=== PATIENT | female | born 1960 | race Caucasian/White ===

== ENCOUNTER 2018-02-08 15:06 | Inpatient (IN) | payer MEDICARE ==
[~2018-02-08] VITALS: Ht 152.4 cm; Wt 78.5 kg
[2018-02-08] MEDS ORDERED: LORA2TAB PO (16:22)
[2018-02-08] MEDS ORDERED: ALPR1TAB7 PO (16:22)
[2018-02-08] MEDS ORDERED: RISP1TAB27 PO (16:22)
[2018-02-08] MEDS ORDERED: MEMA10TA PO (16:22)
[2018-02-08] MEDS ORDERED: LEVO25TA9 PO (16:22)
[2018-02-08] MEDS ORDERED: LEVO50TA8 PO (16:22)
[2018-02-08] MEDS ORDERED: ZOLP10TA6 PO (16:22)
[2018-02-08] MEDS ORDERED: OLAN10TA3 PO (16:22)
[2018-02-08] MEDS ORDERED: PANT40TA4 PO (16:22)
[2018-02-08] MEDS ORDERED: ARIP10TA9 PO (16:22)
[2018-02-08 16:36] LABS: BASOPHILS % (AUTO) 0.3 % (0.0-2.0); HEMATOCRIT 42.4 % (31.2-41.9); HEMOGLOBIN 14.2 g/dL (10.9-14.3); LYMPHOCYTES # (AUTO) 1.5 K/uL (20.0-40.0); LYMPHOCYTES % (AUTO) 27.4 % (20.5-51.5); MEAN CORPUSCULAR HEMOGLOBIN 31.4 uug (24.7-32.8); MEAN CORPUSCULAR HGB CONC 34 g/dL (32.3-35.6); MEAN CORPUSCULAR VOLUME 93.7 fL (75.5-95.3); MONOCYTES # (AUTO) 0.4 K/uL (2.0-10.0); MONOCYTES % (AUTO) 8.2 % (0.0-11.0); NEUTROPHILS # (AUTO) 3.4 K/uL (1.8-8.9); NEUTROPHILS % (AUTO) 64.1 % (38.5-71.5); PLATELET COUNT (AUTO) 221 K/uL (179-408); RED BLOOD CELL COUNT(AUTO) 4.53 MIL/uL (3.63-4.92); WHITE BLOOD COUNT (AUTO) 5.4 K/uL (3.8-11.8)
[2018-02-08 16:45] LABS: *BILIRUBIN,URIN NEGATIVE (NEGATIVE); *BLOOD, URINE Trace-intact (NEGATIVE); *CLARITY,URINE SLIGHTLY CLOUDY (CLEAR); *COLOR,URINE YELLOW (YELLOW); *KETONES,URINE NEGATIVE (NEGATIVE); *PROTEIN,URINE NEGATIVE (NEGATIVE); *UROBILINOGEN,URINE 0.2 E.U./dl (NORMAL); LEUKOCYTE ESTERASE ,URINE 1+ (NEGATIVE); NITRITE, URINE NEGATIVE (NEGATIVE); PH,URINE 6.5 (5.0-8.0); UGLUCOSE NEGATIVE (NEGATIVE)
[2018-02-08 16:46] LABS: CARBON DIOXIDE 31 mmol/L (21-32); CHLORIDE 106 mmol/L (98-107); CREATININE 0.9 mg/dL (0.6-1.3); GLUCOSE 93 mg/dL (74-106); POTASSIUM 4.5 mmol/L (3.5-5.1); UREA NITROGEN, BLOOD 24 mg/dL (7-18)
[2018-02-08 16:52] LABS: ETHANOL < 3 MG/DL (0-0)
[2018-02-08 16:53] LABS: *AMPHETAMINE, URINE NEGATIVE (NEGATIVE); *BARBITURATE, URINE NEGATIVE (NEGATIVE); *CANNABINOID, URINE NEGATIVE (NEGATIVE); *COCCAINE, URINE NEGATIVE (NEGATIVE); *OPIATE, URINE NEGATIVE (NEGATIVE); *PHENCYCLIDINE SCREEN,URINE NEGATIVE (NEGATIVE)
[2018-02-08 16:53] LABS: ALANINE AMINOTRANSFERASE 30 U/L (14-59); ALKALINE PHOSPHATASE 132 U/L (50-136); ASPARTATE AMINOTRANSFERASE 16 U/L (15-37); BILIRUBIN,DIRECT 0.1 mg/dL (0.0-0.2); BILIRUBIN,TOTAL 0.3 mg/dL (0.2-1.0); TOTAL PROTEIN, SERUM 7.1 g/dL (6.4-8.2)
[2018-02-08 16:56] LABS: ACETAMINOPHEN < 2.0 ug/mL (10-30)
[2018-02-08 16:59] LABS: BACTERIA,URINE FEW /HPF (NONE SEEN); RBC,URINE 0-3 /HPF (0-3); SQUAMOUS EPITHELIAL CELL,UR FEW /HPF (NONE SEEN); WBC,URINE 20-50 /HPF (0-3)
[2018-02-08] MEDS ORDERED: NITROFURANTOIN/NITROFURAN MAC 100 MG CAPSULE ONE (17:13)
[2018-02-08] MEDS ORDERED: NITROFURANTOIN/NITROFURAN MAC 100 MG CAPSULE PO ONE (17:15)
[2018-02-08 19:30] VITALS: BP 128/79
[2018-02-08] MEDS ORDERED: MAGNESIUM HYDROXIDE 30 ML LIQUID UDC PO PRN (19:45)
[2018-02-08 20:42] VITALS: BP 128/79
[2018-02-08] MEDS: LORAZEPAM 0.5 MG TABLET PO PRN (20:57)
[2018-02-08] MEDS: TEMAZEPAM 7.5 MG CAPSULE PO PRN (21:29)
[2018-02-08] MEDS: ACETAMINOPHEN 325 MG TABLET PO PRN (23:19)
[2018-02-09] MEDS: PANTOPRAZOLE SODIUM 40 MG TABLET.DR PO SCH (06:33)
[2018-02-09 07:30] VITALS: BP 119/69
[2018-02-09 07:38] LABS: HEMATOCRIT 44.7 % (31.2-41.9); HEMOGLOBIN 14.8 g/dL (10.9-14.3); LYMPHOCYTES # (AUTO) 1.4 K/uL (20.0-40.0); LYMPHOCYTES % (AUTO) 26.2 % (20.5-51.5); MEAN CORPUSCULAR HEMOGLOBIN 31.2 uug (24.7-32.8); MEAN CORPUSCULAR HGB CONC 33 g/dL (32.3-35.6); MEAN CORPUSCULAR VOLUME 94.2 fL (75.5-95.3); MONOCYTES # (AUTO) 0.4 K/uL (2.0-10.0); MONOCYTES % (AUTO) 7.9 % (0.0-11.0); NEUTROPHILS # (AUTO) 3.5 K/uL (1.8-8.9); NEUTROPHILS % (AUTO) 65.9 % (38.5-71.5); PLATELET COUNT (AUTO) 214 K/uL (179-408); RED BLOOD CELL COUNT(AUTO) 4.75 MIL/uL (3.63-4.92); WHITE BLOOD COUNT (AUTO) 5.3 K/uL (3.8-11.8)
[2018-02-09 08:11] LABS: BILIRUBIN,TOTAL 0.3 mg/dL (0.2-1.0); CREATININE 0.8 mg/dL (0.6-1.3); MAGNESIUM 2.1 mg/dL (1.8-2.4); PHOSPHOROUS 4.3 mg/dL (2.5-4.9); POTASSIUM 4.4 mmol/L (3.5-5.1); TOTAL PROTEIN, SERUM 7.6 g/dL (6.4-8.2)
[2018-02-09 08:28] LABS: THYROID STIMULATING HORMONE 1.349 mIU/mL (0.358-3.740)
[2018-02-09] MEDS ORDERED: LEVOTHYROXINE SODIUM 50 MCG TABLET PO SCH (09:00)
[2018-02-09] MEDS: ACETAMINOPHEN 325 MG TABLET PO PRN (11:05)
[2018-02-09] MEDS: LEVOTHYROXINE SODIUM 25 MCG TABLET PO SCH (11:58)
[2018-02-09] MEDS: risperiDONE 0.5 MG TABLET PO SCH ×2 (14:31→17:17)
[2018-02-09] MEDS: DIVALPROEX 250 MG TABLET.DR PO SCH ×2 (14:32→17:17)
[2018-02-09] MEDS: BENZTROPINE MESYLATE 0.5 MG TABLET PO SCH ×2 (14:32→17:17)
[2018-02-09 16:19] VITALS: BP 130/68
[2018-02-09] MEDS: CEPHALEXIN MONOHYDRATE 500 MG CAPSULE PO SCH (20:02)
[2018-02-09] MEDS: LORAZEPAM 0.5 MG TABLET PO PRN (20:56)
[2018-02-09] MEDS: TEMAZEPAM 7.5 MG CAPSULE PO PRN (21:37)
[2018-02-10] MEDS: LEVOTHYROXINE SODIUM 25 MCG TABLET PO SCH (06:33)
[2018-02-10] MEDS: PANTOPRAZOLE SODIUM 40 MG TABLET.DR PO SCH (06:33)
[2018-02-10 07:30] VITALS: BP 124/64
[2018-02-10] MEDS: risperiDONE 0.5 MG TABLET PO SCH ×3 (08:41→17:05)
[2018-02-10] MEDS: CEPHALEXIN MONOHYDRATE 500 MG CAPSULE PO SCH ×2 (08:41→20:25)
[2018-02-10] MEDS: BENZTROPINE MESYLATE 0.5 MG TABLET PO SCH ×3 (08:41→17:05)
[2018-02-10] MEDS: DIVALPROEX 250 MG TABLET.DR PO SCH ×3 (08:41→17:05)
[2018-02-10] MEDS: ACETAMINOPHEN 325 MG TABLET PO PRN (15:22)
[2018-02-10 15:34] VITALS: BP 117/66
[2018-02-10 19:30] VITALS: BP 134/69
[2018-02-10] MEDS: TEMAZEPAM 7.5 MG CAPSULE PO PRN (22:26)
[2018-02-11] MEDS: LORAZEPAM 0.5 MG TABLET PO PRN (06:28)
[2018-02-11] MEDS: LEVOTHYROXINE SODIUM 25 MCG TABLET PO SCH (06:28)
[2018-02-11 07:30] VITALS: BP 132/75
[2018-02-11] MEDS: PANTOPRAZOLE SODIUM 40 MG TABLET.DR PO SCH (07:38)
[2018-02-11] MEDS: ACETAMINOPHEN 325 MG TABLET PO PRN (07:51)
[2018-02-11] MEDS: risperiDONE 0.5 MG TABLET PO SCH ×3 (08:50→16:53)
[2018-02-11] MEDS: DIVALPROEX 250 MG TABLET.DR PO SCH ×3 (08:51→16:53)
[2018-02-11] MEDS: BENZTROPINE MESYLATE 0.5 MG TABLET PO SCH ×4 (08:51→20:10)
[2018-02-11] MEDS: CEPHALEXIN MONOHYDRATE 500 MG CAPSULE PO SCH ×2 (08:51→20:10)
[2018-02-11 15:08] VITALS: BP 114/69
[2018-02-11 20:00] VITALS: BP 109/46
[2018-02-11] MEDS ORDERED: risperiDONE 0.5 MG TABLET PO SCH (21:00)
[2018-02-11] MEDS: TEMAZEPAM 7.5 MG CAPSULE PO PRN (22:14)
[2018-02-12] MEDS: PANTOPRAZOLE SODIUM 40 MG TABLET.DR PO SCH (06:39)
[2018-02-12] MEDS: LEVOTHYROXINE SODIUM 25 MCG TABLET PO SCH (06:39)
[2018-02-12 06:56] LABS: BASOPHILS % (AUTO) 0.1 % (0.0-2.0); HEMATOCRIT 44.1 % (31.2-41.9); HEMOGLOBIN 14.9 g/dL (10.9-14.3); LYMPHOCYTES # (AUTO) 1.4 K/uL (20.0-40.0); LYMPHOCYTES % (AUTO) 29.3 % (20.5-51.5); MEAN CORPUSCULAR HEMOGLOBIN 31.6 uug (24.7-32.8); MEAN CORPUSCULAR HGB CONC 34 g/dL (32.3-35.6); MEAN CORPUSCULAR VOLUME 93.6 fL (75.5-95.3); MONOCYTES # (AUTO) 0.4 K/uL (2.0-10.0); MONOCYTES % (AUTO) 8.7 % (0.0-11.0); NEUTROPHILS % (AUTO) 61.9 % (38.5-71.5); PLATELET COUNT (AUTO) 204 K/uL (179-408); RED BLOOD CELL COUNT(AUTO) 4.71 MIL/uL (3.63-4.92); WHITE BLOOD COUNT (AUTO) 4.8 K/uL (3.8-11.8)
[2018-02-12 07:09] LABS: BILIRUBIN,TOTAL 0.6 mg/dL (0.2-1.0); CREATININE 0.8 mg/dL (0.6-1.3); MAGNESIUM 2.1 mg/dL (1.8-2.4); TOTAL PROTEIN, SERUM 7.2 g/dL (6.4-8.2)
[2018-02-12 08:00] VITALS: BP 112/70
[2018-02-12] MEDS: BENZTROPINE MESYLATE 0.5 MG TABLET PO SCH ×4 (08:29→20:13)
[2018-02-12] MEDS: CEPHALEXIN MONOHYDRATE 500 MG CAPSULE PO SCH ×2 (08:29→20:13)
[2018-02-12] MEDS: risperiDONE 0.5 MG TABLET PO SCH ×3 (08:29→17:40)
[2018-02-12] MEDS: DIVALPROEX 250 MG TABLET.DR PO SCH ×4 (08:29→20:13)
[2018-02-12 16:15] VITALS: BP 108/59
[2018-02-12] MEDS: risperiDONE 1 MG TABLET PO SCH (20:13)
[2018-02-12 20:22] VITALS: BP 127/75
[2018-02-12] MEDS ORDERED: risperiDONE 0.5 MG TABLET PO SCH (21:00)
[2018-02-12] MEDS: TEMAZEPAM 7.5 MG CAPSULE PO PRN (22:29)
[2018-02-13] MEDS: LORAZEPAM 0.5 MG TABLET PO PRN (02:21)
[2018-02-13] MEDS: LEVOTHYROXINE SODIUM 25 MCG TABLET PO SCH (06:23)
[2018-02-13] MEDS: PANTOPRAZOLE SODIUM 40 MG TABLET.DR PO SCH (06:34)
[2018-02-13 07:30] VITALS: BP 117/62
[2018-02-13] MEDS: DIVALPROEX 250 MG TABLET.DR PO SCH ×4 (08:36→20:51)
[2018-02-13] MEDS: BENZTROPINE MESYLATE 0.5 MG TABLET PO SCH ×4 (08:36→20:52)
[2018-02-13] MEDS: CEPHALEXIN MONOHYDRATE 500 MG CAPSULE PO SCH ×2 (08:37→20:51)
[2018-02-13] MEDS: risperiDONE 0.5 MG TABLET PO SCH ×3 (08:37→17:26)
[2018-02-13 15:06] VITALS: BP 117/59
[2018-02-13 20:12] VITALS: BP 116/60
[2018-02-13] MEDS: risperiDONE 1 MG TABLET PO SCH (20:52)
[2018-02-14] MEDS: LEVOTHYROXINE SODIUM 25 MCG TABLET PO SCH (06:11)
[2018-02-14] MEDS: ACETAMINOPHEN 325 MG TABLET PO PRN (06:11)
[2018-02-14] MEDS: PANTOPRAZOLE SODIUM 40 MG TABLET.DR PO SCH (06:11)
[2018-02-14 07:30] VITALS: BP 115/70
[2018-02-14] MEDS: CEPHALEXIN MONOHYDRATE 500 MG CAPSULE PO SCH ×2 (08:05→21:10)
[2018-02-14] MEDS: DIVALPROEX 250 MG TABLET.DR PO SCH ×4 (08:05→21:10)
[2018-02-14] MEDS: BENZTROPINE MESYLATE 0.5 MG TABLET PO SCH ×4 (08:05→21:10)
[2018-02-14] MEDS: risperiDONE 0.5 MG TABLET PO SCH ×3 (08:06→16:30)
[2018-02-14] MEDS: MAG HYDROX/AL HYDROX/SIMETH 30 ML LIQUID UDC PO PRN (14:16)
[2018-02-14 15:34] VITALS: BP 121/64
[2018-02-14] MEDS: risperiDONE 1 MG TABLET PO SCH (21:11)
[2018-02-14 21:21] VITALS: BP 118/63
[2018-02-15] MEDS: TEMAZEPAM 7.5 MG CAPSULE PO PRN ×2 (00:26→23:08)
[2018-02-15] MEDS: LEVOTHYROXINE SODIUM 25 MCG TABLET PO SCH (06:26)
[2018-02-15] MEDS: PANTOPRAZOLE SODIUM 40 MG TABLET.DR PO SCH (06:27)
[2018-02-15] MEDS: BENZTROPINE MESYLATE 0.5 MG TABLET PO SCH ×4 (08:31→20:10)
[2018-02-15] MEDS: DIVALPROEX 250 MG TABLET.DR PO SCH ×4 (08:31→20:10)
[2018-02-15] MEDS: CEPHALEXIN MONOHYDRATE 500 MG CAPSULE PO SCH ×2 (08:31→20:10)
[2018-02-15] MEDS: risperiDONE 0.5 MG TABLET PO SCH ×2 (08:32→12:52)
[2018-02-15 09:49] VITALS: BP 115/68
[2018-02-15 15:26] VITALS: BP 98/57
[2018-02-15] MEDS: risperiDONE 1 MG TABLET PO SCH ×2 (16:20→20:11)
[2018-02-15] MEDS ORDERED: risperiDONE 0.5 MG TABLET PO SCH (17:00)
[2018-02-15] MEDS: MAG HYDROX/AL HYDROX/SIMETH 30 ML LIQUID UDC PO PRN (18:43)
[2018-02-15 20:00] VITALS: BP 118/69
[2018-02-16] MEDS: LEVOTHYROXINE SODIUM 25 MCG TABLET PO SCH (06:51)
[2018-02-16] MEDS: PANTOPRAZOLE SODIUM 40 MG TABLET.DR PO SCH (06:51)
[2018-02-16 07:30] VITALS: BP 129/67
[2018-02-16] MEDS: risperiDONE 1 MG TABLET PO SCH ×2 (08:04→17:08)
[2018-02-16] MEDS: DIVALPROEX 250 MG TABLET.DR PO SCH ×3 (08:04→17:08)
[2018-02-16] MEDS: BENZTROPINE MESYLATE 0.5 MG TABLET PO SCH ×3 (08:04→21:03)
[2018-02-16] MEDS: CEPHALEXIN MONOHYDRATE 500 MG CAPSULE PO SCH ×2 (08:04→21:03)
[2018-02-16 15:14] VITALS: BP 111/71
[2018-02-16 19:30] VITALS: BP 106/61
[2018-02-16] MEDS: DIVALPROEX 125 MG TABLET.DR PO SCH (21:00)
[2018-02-16] MEDS ORDERED: DIVALPROEX 250 MG TABLET.DR PO SCH (21:00)
[2018-02-16] MEDS ORDERED: risperiDONE 1 MG TABLET PO SCH (21:00)
[2018-02-16] MEDS: risperiDONE 2 MG TABLET PO SCH (21:04)
[2018-02-17] MEDS: MAG HYDROX/AL HYDROX/SIMETH 30 ML LIQUID UDC PO PRN (05:50)
[2018-02-17] MEDS: PANTOPRAZOLE SODIUM 40 MG TABLET.DR PO SCH (06:34)
[2018-02-17] MEDS: LEVOTHYROXINE SODIUM 25 MCG TABLET PO SCH (06:34)
[2018-02-17 07:30] VITALS: BP 118/60
[2018-02-17 07:39] LABS: BASOPHILS % (AUTO) 0.1 % (0.0-2.0); HEMATOCRIT 43.9 % (31.2-41.9); HEMOGLOBIN 14.7 g/dL (10.9-14.3); LYMPHOCYTES # (AUTO) 1.4 K/uL (20.0-40.0); MEAN CORPUSCULAR HEMOGLOBIN 31.2 uug (24.7-32.8); MEAN CORPUSCULAR HGB CONC 34 g/dL (32.3-35.6); MEAN CORPUSCULAR VOLUME 92.8 fL (75.5-95.3); MONOCYTES # (AUTO) 0.4 K/uL (2.0-10.0); MONOCYTES % (AUTO) 9.4 % (0.0-11.0); NEUTROPHILS # (AUTO) 2.6 K/uL (1.8-8.9); NEUTROPHILS % (AUTO) 58.5 % (38.5-71.5); PLATELET COUNT (AUTO) 193 K/uL (179-408); RED BLOOD CELL COUNT(AUTO) 4.73 MIL/uL (3.63-4.92); WHITE BLOOD COUNT (AUTO) 4.5 K/uL (3.8-11.8)
[2018-02-17 07:51] LABS: BILIRUBIN,TOTAL 0.4 mg/dL (0.2-1.0); CREATININE 0.9 mg/dL (0.6-1.3); MAGNESIUM 2.4 mg/dL (1.8-2.4); PHOSPHOROUS 3.7 mg/dL (2.5-4.9); TOTAL PROTEIN, SERUM 6.9 g/dL (6.4-8.2)
[2018-02-17] MEDS: risperiDONE 1 MG TABLET PO SCH ×2 (09:07→16:53)
[2018-02-17] MEDS: BENZTROPINE MESYLATE 0.5 MG TABLET PO SCH ×3 (09:08→20:27)
[2018-02-17] MEDS: DIVALPROEX 250 MG TABLET.DR PO SCH ×3 (09:08→16:53)
[2018-02-17 20:11] VITALS: BP 108/56
[2018-02-17] MEDS: DIVALPROEX 125 MG TABLET.DR PO SCH (20:27)
[2018-02-17] MEDS: risperiDONE 2 MG TABLET PO SCH (20:27)
[2018-02-17] MEDS ORDERED: ATORVASTATIN 10 MG TABLET PO SCH (21:00)
[2018-02-18] MEDS: LEVOTHYROXINE SODIUM 25 MCG TABLET PO SCH (06:55)
[2018-02-18] MEDS: PANTOPRAZOLE SODIUM 40 MG TABLET.DR PO SCH (06:55)
[2018-02-18 07:30] VITALS: BP 118/59
[2018-02-18] MEDS: DIVALPROEX 250 MG TABLET.DR PO SCH ×2 (08:35→12:43)
[2018-02-18] MEDS: BENZTROPINE MESYLATE 0.5 MG TABLET PO SCH (08:36)
[2018-02-18] MEDS: risperiDONE 1 MG TABLET PO SCH (08:36)
[2018-02-18] MEDS: LORAZEPAM 0.5 MG TABLET PO PRN (14:35)
[2018-02-21 20:06] LABS: *VITAMIN D 25-OH VIT D 27 ng/mL (.); *VITAMIN D 25-OH, D2 <1.0 ng/mL (.); *VITAMIN D 25-OH, D3 27 ng/mL (.)
== END 2018-02-18 15:35 | disposition home health service (06) | DRG 885 ==
LOC: ER 15:10 → GPS 18:28
PROVIDERS: ADMIT Psychiatry & Neurology Psychosomatic Medicine; ATTEND Nurse Practitioner Acute Care
PROC: 0HBRXZZ Excision of Toe Nail, External Approach (ICD-10-PCS; principal; 2018-02-13)
DX: F25.0 Schizoaffective disorder, bipolar type (principal); G93.40 Encephalopathy, unspecified; N39.0 Urinary tract infection, site not specified; M21.612 Bunion of left foot; M21.611 Bunion of right foot; M21.42 Flat foot [pes planus] (acquired), left foot; M21.41 Flat foot [pes planus] (acquired), right foot; R26.2 Difficulty in walking, not elsewhere classified; B35.1 Tinea unguium; Q82.8 Other specified congenital malformations of skin; M20.42 Other hammer toe(s) (acquired), left foot; M20.41 Other hammer toe(s) (acquired), right foot; E03.9 Hypothyroidism, unspecified; F03.90 Unspecified dementia, unspecified severity, without behavioral disturbance, psychotic disturbance, mood disturbance, and anxiety; Z79.899 Other long term (current) drug therapy; E78.5 Hyperlipidemia, unspecified; E66.01 Morbid (severe) obesity due to excess calories; Z71.3 Dietary counseling and surveillance; Z68.35 Body mass index [BMI] 35.0-35.9, adult; Z91.5 Personal history of self-harm; B96.89 Other specified bacterial agents as the cause of diseases classified elsewhere
CPT/HCPCS: 36415; 70450; 80164; 80307; 82306; 83735; 84100; 84443; 85025; A4663; G0480; G0480-TC; J3490